=== PATIENT | female | born 2000 | race Caucasian/White ===

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

== ENCOUNTER 2018-01-12 09:35 | Emergency (ER) | payer OTHER ==
[~2018-01-12] VITALS: Ht 157.5 cm; Wt 80.9 kg
[~2018-01-12 09:35] MED LIST changes: +CLC100 PO; +FRRS300 PO; +KFL500 MT; +LBT100 PO; +OXYC-57 PO; +ZLF50 PO
[2018-01-12 09:41] VITALS: TEMP 37.5; Ht 157.5 cm; Wt 80.9 kg
[2018-01-12 09:45] VITALS: O2SAT 98
[2018-01-12] MEDS ORDERED: SODIUM CHLORIDE 0.9% 1000ML 1,000 ML IV STA (09:49)
[2018-01-12 10:03] LABS: BASO % 0.3 %; BASO ABS # 0.05 K/uL (0-0.2); EOS % 1.1 %; EOS ABS # 0.21 K/uL (0-0.5); HEMATOCRIT 36.5 % (37-47); HEMOGLOBIN 12.2 g/dL (12.0-16.0); IG# 0.86 K/uL (0.00-0.02); LYMPH % 13.1 %; LYMPH ABS # 2.54 K/uL (1.2-3.4); MEAN CORPUSCULAR HEMOGLOBIN 29.8 pg (25-34); MEAN CORPUSCULAR HGB CONC 33.4 g/dl (32-36); MEAN PLATELET VOLUME 9.8 fL (7.4-10.4); MONO % 5.2 %; NEUT % 75.9 %; NEUT ABS # 14.72 K/uL (1.4-6.5); PLATELET COUNT 561 K/uL (130-400); RED CELL DISTRIBUTION WIDTH CV 13.3 % (11.5-14.5); RED CELL DISTRIBUTION WIDTH SD 43.7 fL (36.4-46.3); WHITE BLOOD COUNT 19.38 K/uL (4.8-10.8)
--- NOTE | 2018-01-12 10:08 | DIAGNOSTIC IMAGING REPORT ---
SINGLE VIEW CHEST CLINICAL HISTORY: Atypical chest pain. FINDINGS: An AP, portable, upright chest radiograph is compared to study dated 01/05/2018. The cardiomediastinal silhouette is unremarkable. The lungs and pleural spaces are clear. No pneumothorax is seen. The bony thorax is grossly intact. IMPRESSION: No active disease in the chest. Small pleural effusions have resolved from 01/05/2018. Electronically signed by: Cristian Mendez M.D. 01/12/2018 10:07 AM Dictated Date/Time: 01/12/2018 10:06 AM
[2018-01-12 10:26] LABS: ALBUMIN 2.9 gm/dl (3.4-5.0); ALKALINE PHOSPHATASE 257 U/L (45-117); ALT/SGPT 49 U/L (12-78); AST/SGOT 39 U/L (15-37); BLOOD UREA NITROGEN 19 mg/dl (7-18); CALCIUM 8.8 mg/dl (8.5-10.1); CARBON DIOXIDE 20 mmol/L (21-32); CREATININE 0.93 mg/dl (0.60-1.20); GLUCOSE 98 mg/dl (70-99); LIPASE 179 U/L (73-393); SODIUM 135 mmol/L (136-145); TOTAL PROTEIN 7.9 gm/dl (6.4-8.2)
[2018-01-12] MEDS ORDERED: DOCU100C31 PO (10:36)
[2018-01-12] MEDS ORDERED: FERR1TAB13 PO (10:36)
[2018-01-12] MEDS ORDERED: OXYC-57 PO (10:36)
[2018-01-12] MEDS ORDERED: CEPH500C PO (10:36)
[2018-01-12] MEDS ORDERED: LBT/100 PO (10:36)
[2018-01-12] MEDS ORDERED: SERT50TA PO (10:36)
[2018-01-12 12:00] VITALS: BP 129/84
--- NOTE | 2018-01-12 12:26 | EMERGENCY ROOM VISIT NOTE ---
History Report prepared by Nacho: Kristopher Davis Under the Supervision of: Dr. Paul Batista M.D. First contact with patient: 09:42 Chief Complaint: DIZZY Stated Complaint: DIZZY/ECOLI Nursing Triage Summary: pt presents to room a03 via bls. pt reports she had a c section 10 days ago and was in the hospital 8 days for e coli in uterus. pt reports today she was lightheaded and had cold sweats. pt reports she fell down 3 steps and then passed out. pt at this time reports she feels fine except for "cold sweats." pt also reports she vomited some blood this am "i can't really describe it." History of Present Illness The patient is a 17 year old female who presents to the Emergency Room following a syncopal episode that occurred about 30 minutes ago. The patient states that she was sitting on the toilet having a bowel movement. When she stood up she became "lightheaded" and felt like she was going to pass out. She walked over to her fiance and lost consciousness. She did not fall as her fiance caught her. After she regained consciousness she adds that she vomited. She noticed a few small blood clots in the emesis. The patient also adds that she has been coughing and has been noticing some blood in the phlegm. The patient does have an extensive recent medical history as she had a 10 days ago. The patient had the as she had preeclampsia with an E. coli infection in her uterus. She was admitted to the hospital for 8 days and also had a fluid overload and bronchitis. Since this discharge the patient's white blood cell count increased from 17 to 21, and she did have a fever last night. She is not currently nauseated. Source of History: patient Onset: 30 minutes ago Position: head Quality: other (Lightheaded) Timing: other (1 syncopal episode) Associated Symptoms: + LOC, + fevers, + vomiting Review of Systems See HPI for pertinent positives and negatives. A total of ten systems were reviewed and were otherwise negative. Past Medical & Surgical Medical Problems: (1) 1ST Deg Burn Hand Nos (2) Anxiety (3) Asthma exacerbation (4) Asthma exacerbation (5) Asthma exacerbation (6) Asthma, Unspecified (7) Asthma, Unspecified (8) Bronchitis (9) Depression (10) Elevated blood pressure affecting in third trimester, antepartum (11) Knee pain (12) Knee pain (13) Left ankle sprain (14) Otitis Media Nos (15) Personal History, Pneumonia (Recurrent) (16) Personal History, Pneumonia (Recurrent) (17) labor in second trimester (18) Severe preeclampsia (19) Sprain Of Foot Nos (20) Sprain Of Jaw (21) Tobacco Use Disorder (22) Tobacco Use Disorder Family History Diabetes mellitus FH: heart disease Kidney disease Social History Smoking Status: Current Every Day Smoker Alcohol Use: none Drug Use: none Marital Status: single Housing Status: lives with family Occupation Status: student Current/Historical Medications Scheduled Cephalexin Monohydrate (Keflex), 500 MG PO TID Docusate Sodium (Docusate Sodium), 100 MG PO BID Ferrous Sulfate (Kp Ferrous Sulfate), 325 MG PO DAILY Labetalol Hcl (Normodyne), 100 MG PO BID Multivit/Min/Iron/Fol Ac/Pren ( Vitamin), 1 TAB PO DAILY Sertraline (Zoloft), 50 MG PO DAILY Scheduled PRN Albuterol Hfa (Ventolin Hfa), 2 PUFFS INH Q6H PRN for SOB/Wheezing Oxycodone/Acetaminophen 5MG/325MG (Percocet 5MG/325MG), 1 TABLET PO Q4H PRN for Pain Allergies Coded Allergies: Penicillins (Unverified Allergy, Unknown, HIVES, 01/06/18) Physical Exam Vital Signs Date Time Temp Pulse Resp B/P (MAP) Pulse Ox O2 Delivery O2 Flow Rate FiO2 01/12/18 12:35 80 18 98 01/12/18 12:00 79 20 129/84 98 Room Air 01/12/18 10:59 72 17 117/80 99 Room Air 01/12/18 10:08 83 16 142/90 98 Room Air 01/12/18 10:08 80 01/12/18 09:45 98 Room Air 01/12/18 09:41 37.5 90 18 130/79 98 Room Air Physical Exam GENERAL: Awake, alert, fatigued-appearing, in no distress HENT: Normocephalic, atraumatic. Oropharynx unremarkable. Mucous membranes are dry. EYES: Normal conjunctiva. Sclera non-icteric. NECK: Supple. No nuchal rigidity. FROM. No JVD. RESPIRATORY: Clear to auscultation. CARDIAC: Regular rate, normal rhythm. Extremities warm and well perfused. Pulses equal. ABDOMEN: Soft, non-distended. Mild lower abdominal tenderness to palpation, appropriate for post-op status. Incision site clean, dry, intact. No rebound or guarding. No masses. RECTAL: Deferred. MUSCULOSKELETAL: Chest examination reveals no tenderness. The back is symmetrical on inspection without obvious abnormality. There is no CVA tenderness to palpation. No joint edema. LOWER EXTREMITIES: Calves are equal size bilaterally and non-tender. No edema. No discoloration. NEURO: Normal sensorium. No sensory or motor deficits noted. SKIN: No rash or jaundice noted. Medical Decision & Procedures ER Provider Diagnostic Interpretation: Radiology results as stated below per my review and radiologist interpretation: SINGLE VIEW CHEST CLINICAL HISTORY: Atypical chest pain. FINDINGS: An AP, portable, upright chest radiograph is compared to study dated 01/05/2018. The cardiomediastinal silhouette is unremarkable. The lungs and pleural spaces are clear. No pneumothorax is seen. The bony thorax is grossly intact. IMPRESSION: No active disease in the chest. Small pleural effusions have resolved from 01/05/2018. Electronically signed by: Cristian Mendez M.D. 01/12/2018 10:07 AM Dictated Date/Time: 01/12/2018 10:06 AM Laboratory Results 01/12/18 09:45 Red Blood Count 4.10, Mean Corpuscular Volume 89.0, Mean Corpuscular Hemoglobin 29.8, Mean Corpuscular Hemoglobin Concent 33.4, Mean Platelet Volume 9.8, Neutrophils (%) (Auto) 75.9, Lymphocytes (%) (Auto) 13.1, Monocytes (%) (Auto) 5.2, Eosinophils (%) (Auto) 1.1, Basophils (%) (Auto) 0.3, Neutrophils # (Auto) 14.72, Lymphocytes # (Auto) 2.54, Monocytes # (Auto) 1.00, Eosinophils # (Auto) 0.21, Basophils # (Auto) 0.05 01/12/18 09:45 Test 01/12/18 09:45 01/12/18 10:21 01/12/18 11:00 White Blood Count 19.38 K/uL (4.8-10.8) Red Blood Count 4.10 M/uL (4.2-5.4) Hemoglobin 12.2 g/dL (12.0-16.0) Hematocrit 36.5 % (37-47) Mean Corpuscular Volume 89.0 fL (80-100) Mean Corpuscular Hemoglobin 29.8 pg (25-34) Mean Corpuscular Hemoglobin Concent 33.4 g/dl (32-36) Platelet Count 561 K/uL (130-400) Mean Platelet Volume 9.8 fL (7.4-10.4) Neutrophils (%) (Auto) 75.9 % Lymphocytes (%) (Auto) 13.1 % Monocytes (%) (Auto) 5.2 % Eosinophils (%) (Auto) 1.1 % Basophils (%) (Auto) 0.3 % Neutrophils # (Auto) 14.72 K/uL (1.4-6.5) Lymphocytes # (Auto) 2.54 K/uL (1.2-3.4) Monocytes # (Auto) 1.00 K/uL (0.11-0.59) Eosinophils # (Auto) 0.21 K/uL (0-0.5) Basophils # (Auto) 0.05 K/uL (0-0.2) RDW Standard Deviation 43.7 fL (36.4-46.3) RDW Coefficient of Variation 13.3 % (11.5-14.5) Immature Granulocyte % (Auto) 4.4 % Immature Granulocyte # (Auto) 0.86 K/uL (0.00-0.02) Anion Gap 10.0 mmol/L (3-11) Est Creatinine Clear Calc Drug Dose 95.9 ml/min Estimated GFR () 103.3 Estimated GFR (Non- 89.1 BUN/Creatinine Ratio 20.5 (10-20) Calcium Level 8.8 mg/dl (8.5-10.1) Magnesium Level 2.1 mg/dl (1.8-2.4) Total Bilirubin 0.4 mg/dl (0.2-1) Direct Bilirubin 0.1 mg/dl (0-0.2) Aspartate Amino Transf (AST/SGOT) 39 U/L (15-37) Alanine Aminotransferase (ALT/SGPT) 49 U/L (12-78) Alkaline Phosphatase 257 U/L (45-117) Troponin I < 0.015 ng/ml (0-0.045) Total Protein 7.9 gm/dl (6.4-8.2) Albumin 2.9 gm/dl (3.4-5.0) Lipase 179 U/L (73-393) Lactic Acid Level 1.2 mmol/L (0.4-2.0) Urine Color YELLOW Urine Appearance CLEAR (CLEAR) Urine pH 6.0 (4.5-7.5) Urine Specific [place] 1.012 (1.000-1.030) Urine Protein 1+ (NEG) Urine Glucose (UA) NEG (NEG) Urine Ketones NEG (NEG) Urine Occult Blood NEG (NEG) Urine Nitrite NEG (NEG) Urine Bilirubin NEG (NEG) Urine Urobilinogen NEG (NEG) Urine Leukocyte Esterase NEG (NEG) Urine WBC (Auto) 1-5 /hpf (0-5) Urine RBC (Auto) 0-4 /hpf (0-4) Urine Hyaline Casts (Auto) 1-5 /lpf (0-5) Urine Epithelial Cells (Auto) 10-20 /lpf (0-5) Urine Bacteria (Auto) NEG (NEG) Laboratory results reviewed by me Medications Administered Medications (Trade) Dose Ordered Sig/Mark Route Start Time Stop Time Status Last Admin Dose Admin Sodium Chloride 1,000 ml @ 999 mls/hr Q1H1M STAT IV 01/12/18 09:49 01/12/18 10:49 DC 01/12/18 09:59 999 MLS/HR ECG Per My Interpretation Indication: vomiting, other (Dizzy) Rate (beats per minute): 82 Rhythm: normal sinus Findings: no acute ischemic change, other (Normal axis, no AUDELIA) ED Course 0949: The patient was evaluated in room A3. A complete history and physical exam was performed. 1123: I checked on the patient at this time. 1232: I reevaluated the patient. Discussed results and discharge instructions: She verbalized understanding and agreement. The patient is ready for discharge. Medical Decision I reviewed the patient's past medical history, medications, and the nursing notes as described above. Differential diagnosis: Etiologies such as vasovagal event, infection, hypoglycemia, electrolyte abnormalities, cardiac sources, intracerebral event, toxicologic, neurologic, as well as others were entertained. The patient is a 17-year-old woman who presents emergency department after having a syncopal episode this morning after getting up from going to the bathroom setting of recent complicated medical course involving induction of labor at 35 weeks gestation for preeclampsia which was further complicated by endometritis cultures growing pansensitive E. coli absolutely discharged on Keflex HPI. Of note, she saw her OB yesterday for reevaluation and while outpatient WBC was 21, I was to continue to monitor her trending labs and symptoms continue on Keflex. On arrival the patient is fatigued appearing but no acute distress, afebrile stable vital signs. On exam patient has mild lower abdominal tenderness appropriate for her postoperative status, with section site clean dry and intact. She appears clinically dry. Otherwise neuro intact. Including normal cerebellar function with [id number], alternating palms, [id number]. EKG unremarkable. Chest x-ray negative. Labs demonstrate leukocytosis of 19 which appears improved from her report of a WBC of 21 on Wednesday. Otherwise her CBC appears to be consistent with hemoconcentration/dehydration with hematocrit 36.5 up from 29.7 and Platelets 561 up from 207 on 01/08. Bicarb 20 consistent with mild dehydration. Otherwise , lactate within normal limits and no anion gap. Patient feeling improved after IV fluid hydration, appears well and ambulates without difficulty. Given the patient's improvement and apparent improving trend and labs including negative UA and chest x-ray no indication to broaden antibiotic coverage at this time. Syncope today likely related to dehydration in the setting of vasovagal component as well given her preceding bowel movement. Plan for PCP follow-up on Wednesday as scheduled for reevaluation and to repeat lab tests. Findings and plan for follow-up reviewed with patient. Patient agreeable and d/c 'd per discharge instructions. Medication Reconcilliation Current Medication List: was personally reviewed by me Blood Pressure Screening Patient's blood pressure: Elevated blood pressure Blood pressure disposition: Elevated BP felt to be situational Impression Primary Impression: Dehydration Additional Impressions: Syncope Leukocytosis Thrombocytosis Scribe Attestation The scribe's documentation has been prepared under my direction and personally reviewed by me in its entirety. I confirm that the note above accurately reflects all work, treatment, procedures, and medical decision making performed by me. Departure Information Dispostion Home / Self-Care Referrals Larissa Epperson D.O. (PCP) Patient Instructions ED Dehydration, ED Near Syncope Unkn, ED Syncope Vasovagal, My [facility] Additional Instructions Please follow up with your primary care physician as scheduled on Wednesday for re- evaluation and to continue to monitor your complete blood count which showed elevated white blood cells of 19.3 and platelets of 561. Your symptoms today are most likely due to mild dehydration. Otherwise, your exam, EKG, chest xray, and lab results did not show signs of an emergent condition at this time. Continue your current medications as prescribed. Drink plenty of fluids to ensure hydration. Return to the emergency department for worsening symptoms as described in the accompanying instructions. Problem Qualifiers
[2018-01-12 12:35] VITALS: PULSE 80; O2SAT 98
== END 2018-01-12 12:35 | disposition home or self-care (01) ==
LOC: EDBD 09:35 → C.EDA 09:36
DX: O90.89 Other complications of the puerperium, not elsewhere classified (principal); O99.285 Endocrine, nutritional and metabolic diseases complicating the puerperium; O99.13 Other diseases of the blood and blood-forming organs and certain disorders involving the immune mechanism complicating the puerperium; O99.335 Smoking (tobacco) complicating the puerperium; O99.345 Other mental disorders complicating the puerperium; R55 Syncope and collapse; E86.0 Dehydration; D72.829 Elevated white blood cell count, unspecified; D47.3 Essential (hemorrhagic) thrombocythemia; F32.9 Major depressive disorder, single episode, unspecified; F17.200 Nicotine dependence, unspecified, uncomplicated; Z98.891 History of uterine scar from previous surgery; Z88.0 Allergy status to penicillin